=== PATIENT | male | born 1975 | race Caucasian/White ===

== ENCOUNTER 2017-03-04 11:42 | Emergency (ER) | payer OTHER ==
--- NOTE | 2017-03-04 12:01 | PDOC ---
History of Present Illness - General Stated Complaint: BACK PAIN Time Seen by Provider: 03/04/17 12:00 History Source: Patient, Old Records Exam Limitations: No Limitations - History of Present Illness Initial Comments: 03/04/17 13:19 41-year-old male with history of psychiatric illness, hypothyroid disease and bilateral pulmonary embolism in 2014no longer on anticoagulant therapy presents to the emergency Department with complaints of diffuse back pain and chest pain that started this morning. The patient states that he has no shortness of breath. He describes the pain as sharp and being worsened when he moves. He says that he always coughs. Is not having any productive sputum. He denies fevers chills. He denies abdominal pain, complaints, nausea, vomiting or diarrhea. The patient has a history of shingles in the past and says that this feels similar to his shingles pain. Past History - Past Medical History Allergies/Adverse Reactions: Allergies Allergy/AdvReac Type Severity Reaction Status Date / Time No Known Allergies Allergy Verified 03/04/17 12:37 Home Medications: Ambulatory Orders Duloxetine [Cymbalta -] 60 mg PO DAILY 02/19/12 Ibuprofen 800 mg PO QID #30 tablet 03/04/17 Levothyroxine [Synthroid -] 125 mcg PO DAILY 03/04/17 Tamsulosin HCl [Flomax] 0.4 mg PO DAILY #14 cap.er.24h 03/04/17 Anemia: No Asthma: No Cancer: No Cardiac Disorders: No CVA: No COPD: No CHF: No Dementia: No Diabetes: No Dialysis: No GI Disorders: No Disorders: No HTN: No Hypercholesterolemia: No Liver Disease: No Psychiatric Problems: Yes Seizures: No Thyroid Disease: Yes - Psycho/Social/Smoking Cessation Hx Anxiety: No Suicidal Ideation: No Smoking Status: No Smoking History: Never smoked Have you smoked in the past 12 months: No Number of Cigarettes Smoked Daily: 0 Hx Alcohol Use: Yes Drug/Substance Use Hx: No Substance Use Type: None Hx Substance Use Treatment: No Review of Systems - Review of Systems Able to Perform ROS?: Yes Is the patient limited Upper Sorbian proficient: No Constitutional: No: Symptoms Reported HEENTM: No: Symptoms Reported Respiratory: Yes: See HPI Cardiac (ROS): Yes: See HPI ABD/GI: No: Symptoms Reported : Yes: Other (He has had some difficulty urinating but is unable to describe exactly what that is.) Musculoskeletal: Yes: See HPI, Back Pain Integumentary: No: Symptoms Reported Neurological: No: Symptoms reported *Physical Exam - Physical Exam Comments: 03/04/17 13:20 GENERAL: Well developed, well nourished. Awake and alert. No acute distress. HEENT: Normocephalic, atraumatic. PERRLA, EOMI. No conjunctival pallor. Sclera are non- icteric. Moist mucous membranes. Oropharynx is clear. NECK: Supple. Full ROM. No JVD. No lymphadenopathy. CARDIOVASCULAR: Regular rate and rhythm. No murmurs, rubs, or gallops. Distal pulses are 2+ and symmetric. PULMONARY: No evidence of respiratory distress. Lungs clear to auscultation bilaterally. No wheezing, rales or rhonchi. ABDOMINAL: Soft. Non-tender. Non-distended. No rebound or guarding. No organomegaly. Normoactive bowel sounds. MUSCULOSKELETAL Normal range of motion at all joints. No bony deformities or tenderness. No CVA tenderness. EXTREMITIES: No cyanosis. No clubbing. No edema. No calf tenderness. SKIN: Warm and dry. Normal capillary refill. No rashes. No jaundice. NEUROLOGICAL: Alert, awake, appropriate. Cranial nerves 2-12 intact. Grossly non-focal exam. PSYCHIATRIC: Cooperative. Good eye contact. Appropriate mood and affect. ED Treatment Course - LABORATORY CBC & Chemistry Diagram: 03/04/17 13:20 03/04/17 13:20 Medical Decision Making - Medical Decision Making 03/04/17 13:21 41-year-old male with history of psychiatric illness, thyroid disease, PE in the past 2 presents the emergency department with back pain and chest pain times one day. Differential diagnosis includes but is not limited to: Pulmonary embolism, pneumonia, musculoskeletal pain, pneumothorax, electrolyte abnormality , toxic/metabolic derangement, atypical presentation of ACS. Plan: 1. EKG 2. Labs including D-dimer 3. Chest x-ray 4. Pain management 5. Observe and reevaluate 03/04/17 14:43 Addendum: Labs were reviewed and are noted in the EMR. There is blood in the urine and therefore CT scan of the abdomen and pelvis was performed. CT scan reveals bilateral intrarenal calculi with mild left hydroureter and mild left hydronephrosis. The patient is feeling improved and wants to go home. We'll discharge the patient on high-dose ibuprofen and Flomax. Follow-up with urology. Return to the emergency department if symptoms persist, worsen, or new symptoms arise. *DC/Admit/Observation/Transfer Diagnosis at time of Disposition: Back pain, Chest pain, Renal colic, bilateral - Discharge Dispostion Disposition: HOME Condition at time of disposition: Stable Admit: No - Patient Instructions Printed Discharge Instructions: DI for Kidney Stones Additional Instructions: You have been diagnosed with kidney stones. You are being prescribed ibuprofen 800 mgtake 1 tablet every 6-8 hours as needed for pain. You have also been prescribed Flomax 0.4 mgtake 1 tablet daily; this medication helped with passage of the kidney stones. Please follow-up with the urologist and return to the emergency department if your symptoms persist, worsen, or new symptoms arise.
[2017-03-04 12:44] VITALS: BP 136/79; PULSE 69; TEMP 97.6; BMI 20.7
[2017-03-04] MEDS ORDERED: IBUPROFEN 400 MG TABLET (FP) PO ONE ×2 (12:48→13:26)
[2017-03-04 13:12] LABS: URINE APPEARANCE Clear; URINE BILIRUBIN 1+ (NEGATIVE); URINE GLUCOSE (UA) Negative (NEGATIVE); URINE KETONE Negative (NEGATIVE); URINE LEUK ESTERASE Negative (NEGATIVE); URINE NITRITE Negative (NEGATIVE); URINE UROBILINOGEN 0.2 E.U/dl (0.2-1.0)
[2017-03-04 13:16] LABS: URINE BLOOD 3+ (NEGATIVE); URINE COLOR YELLOW; URINE PROTEIN 1+ (NEGATIVE)
[2017-03-04 13:26] LABS: EOSINOPHIL 0.5 % (0-4.5); MCHC 33.5 g/dl (32.0-35.9); MEAN CELL VOLUME 89.3 fl (80-96); MEAN PLT VOLUME 8.8 fl (7.5-11.1); NEUTROPHILS 85.5 % (42.8-82.8); PLATELET COUNT 221 K/MM3 (134-434); RDW 12.5 % (11.9-15.9); WHITE BLOOD COUNT 7.3 K/mm3 (4.0-10.8)
[2017-03-04 13:46] LABS: CPK(DFH) 148 IU/L (38-174)
[2017-03-04 13:47] LABS: ALBUMIN 4.1 g/dl (3.5-5.0); ALK PHOS 39 U/L (32-92); ANION GAP 6 (8-16); BILIRUBIN,TOTAL 1.2 mg/dl (0.2-1.0); CALCIUM 9.1 mg/dl (8.4-10.2); CO2 27 mmol/L (22-28); CREATININE 1.3 mg/dl (0.6-1.3); GLUCOSE,RANDOM 108 mg/dl (74-106); MAGNESIUM 1.8 mg/dL (1.8-2.4); PHOSPHOROUS 2.7 mg/dl (2.5-4.6); SGOT/AST 20 U/L (10-42); SGPT/ALT 16 U/L (10-40); TOT PROT 6.7 g/dl (6.4-8.3)
[2017-03-04 14:18] LABS: URINE RBC 20-40 /hpf (0-3); URINE WBC 0-3 (3-5)
[2017-03-04 14:31] LABS: TROPONIN I (DFP) < 0.03 ng/ml (0.03-0.50)
--- NOTE | 2017-03-05 13:18 | EKG ---
Test Reason : Blood Pressure : / mmHG Vent. Rate : 069 BPM Atrial Rate : 069 BPM P-R Int : 174 ms QRS Dur : 134 ms QT Int : 408 ms P-R-T Axes : 063 082 020 degrees QTc Int : 437 ms SINUS RHYTHM WITH SINUS ARRHYTHMIA WITH OCCASIONAL PREMATURE VENTRICULAR COMPLEXES RIGHT BUNDLE BRANCH BLOCK ABNORMAL ECG NO PREVIOUS ECGS AVAILABLE Confirmed by LATESHA DORSEY, EVIN ([id number]) on 03/05/2017 1:18:36 PM Referred By: HANNA RIBEIRO Confirmed By:EVIN CHARLTON MD
== END 2017-03-04 15:04 | disposition home or self-care (01) ==
LOC: FER 11:42
DX: N23 Unspecified renal colic (principal); M54.9 Dorsalgia, unspecified; R07.89 Other chest pain; F99 Mental disorder, not otherwise specified; E03.9 Hypothyroidism, unspecified; Z86.711 Personal history of pulmonary embolism
CPT/HCPCS: 36415; 71020-TC; 74176-TC; 80053; 81003; 81015; 82550; 83735; 84100; 84484; 85025; 85379; 87086; 93005; 99283-25